=== PATIENT | male | born 1950 | race Caucasian/White ===

== ENCOUNTER 2016-09-17 02:25 | Inpatient (IN) | payer OTHER ==
[~2016-09-17] VITALS: Ht 180.3 cm; Wt 106.9 kg
[~2016-09-17 02:25] MED LIST: ALBUTEROL SULF8.5 GM IH; ASPIR-LOW81 MG PO; ASPIR-TRIN325 M1 PO; ASPIRIN BUFFER325 MG PO; CELEXA20 MG PO; CELEXA40 MG PO; CLOPIDOGREL75 MG PO; CRESTOR10 MG PO; FIBERCON625 MG PO; FLONASE16 G1 BOTH NARES; HUMULIN R100 UNITS/; HUMULIN R500 UNITS/ SC; IBUPROFEN800 MG PO; KEFLEX500 MG PO; LISINOPRIL5 MG PO; LOPRESSOR25 MG PO; NORCO 5/3251 TABLET PO; NOVOLOG 10100 UNITS/ SC; NOVOLOG100 UNIT/2 SQ; PERCOCET 5/31 TABLET PO; PRINIVIL5 MG PO; PROAIR HFA8.5 GM IH; REQUIP1 MG PO; SEROQUEL100 MG PO; SEROQUEL200 MG PO; SYMBICORT60 INHALAT IH
[2016-09-17 02:59] LABS: HEMATOCRIT 39.3 % (38.0-50.0); MCHC 34.1 G/DL (30.0-36.0); MCV 88.1 FL (86-99); MEAN PLAT.VOLUME 11.6 uM^3 (9.0-12.4); PLATELET COUNT 95 K/uL (156-360); RBC DIS.WIDTH-CV 13.7 % (11.8-14.6); RED BLOOD COUNT 4.46 M/uL (4.00-5.50); WHITE BLOOD COUNT 6.6 K/uL (4.1-10.2)
[2016-09-17 03:09] LABS: CHLORIDE 100 mEq/L (99-109); POTASSIUM 4.2 mEq/L (3.7-5.4); SODIUM 136 mEq/L (136-147)
[2016-09-17 03:11] LABS: GLUCOSE 346 mg/dL (70-99)
[2016-09-17 03:12] LABS: ANION GAP 12 MEQ/L (2-14)
[2016-09-17 03:14] LABS: GFR ESTIMATE (CALCULATED) > 59 mL/min/
[2016-09-17 03:15] LABS: UREA NITROGEN (BUN) 17 mg/dL (9-23)
[2016-09-17 05:08] LABS: TROP-I INTERPRETATION POSITIVE
[2016-09-17 05:09] LABS: TROPONIN-I 1.11 ng/mL (0.0-0.30)
[2016-09-17 05:17] LABS: INFLUENZA A VIRAL ANTIGEN NEGATIVE; INFLUENZA B VIRAL ANTIGEN NEGATIVE
[2016-09-17 05:31] LABS: INTER. NORMALIZED RATIO 1.2; PROTHROMBIN TIME 11.8 (9.2-11.2); PTT 27.1 (25-32)
[2016-09-17] MEDS ORDERED: ZITHROMAX250 MG PO (06:54)
[2016-09-17] MEDS ORDERED: KLOR-CON M2020 MEQ PO (06:56)
[2016-09-17] MEDS ORDERED: TRESIBA FL200 UNIT/1 SC (06:59)
[2016-09-17 07:11] LABS: HEMATOCRIT 35.1 % (38.0-50.0); MCH 29.5 PG (29.0-34.0); MCHC 33.3 G/DL (30.0-36.0); MCV 88.4 FL (86-99); MEAN PLAT.VOLUME 11.7 uM^3 (9.0-12.4); PLATELET COUNT 79 K/uL (156-360); RBC DIS.WIDTH-CV 13.5 % (11.8-14.6); RBC DIS.WIDTH-SD 42.8 % (39-53); RED BLOOD COUNT 3.97 M/uL (4.00-5.50); WHITE BLOOD COUNT 5.2 K/uL (4.1-10.2)
[2016-09-17 07:36] LABS: Estimated Average Glucose 212 mg/dL (70-123)
[2016-09-17 07:45] LABS: HDL CHOLESTEROL 27 MG/DL (Desirable>=40); LDL CHOLESTEROL 62 mg/dL (Desirable<100); NON-HDL CHOLESTEROL 89 mg/dL (Desirable<160); TOTAL CHOLESTEROL 116 mg/dL (Desirable<200); TRIGLYCERIDES 133 MG/DL (Normal: <150)
[2016-09-17 07:46] LABS: TROP-I INTERPRETATION POSITIVE
[2016-09-17 07:47] LABS: TROPONIN-I 0.85 ng/mL (0.0-0.30)
[2016-09-17 08:10] VITALS: BP 132/90
[2016-09-17 08:33] LABS: POINT-OF-CARE METER ID UU14174216; POINT-OF-CARE USER ID NUTSLF44
[2016-09-17 09:51] LABS: ADD MIUA? NO; BILIRUBIN NEGATIVE; BLOOD NEGATIVE; COLOR YELLOW ((YELLOW)); GLUCOSE (STRIP) >1000; KETONES NEGATIVE; LEUKOCYTES NEGATIVE; NITRITE NEGATIVE; PROTEIN (STRIP) NEGATIVE; SPECIFIC GRAVITY 1.039 (1.000-1.030); UROBILINOGEN 0.2 MG/DL (0.2-1.0)
[2016-09-17 10:01] LABS: UCUL ADDED? NO
[2016-09-17 10:26] LABS: AMPHETAMINES QUANT VALUE 0 NG/ML; BARBITUATES QUANT VALUE 0 NG/ML; BENZODIAZEPINES QUANT VALUE 0 NG/ML; BENZODIAZEPINES, URINE SCREEN Negative (200 ng/mL); MARIJUANA QUANT VALUE 0 NG/ML; OPIATES QUANTITATIVE VALUE 0 NG/ML; PHENCYCLIDINE QUANT VALUE 0 NG/ML
[2016-09-17] MEDS ORDERED: FIBERCON625 MG PO (12:37)
[2016-09-17] MEDS ORDERED: CRESTOR20 MG PO (12:39)
[2016-09-17] MEDS ORDERED: PROVENTIL,2.5 MG/3 M IH (12:41)
[2016-09-17] MEDS ORDERED: FLONASE16 G1 BOTH NARES (12:41)
[2016-09-17] MEDS ORDERED: CALCIUM MAGNES1 EAC1 PO (12:43)
[2016-09-17] MEDS ORDERED: REQUIP2 MG PO (12:44)
[2016-09-17] MEDS ORDERED: ZITHROMAX Z-PA250 MG PO (12:46)
[2016-09-17 13:02] VITALS: BP 141/67
[2016-09-17 14:29] LABS: POINT-OF-CARE METER ID UU14174216
[2016-09-17 16:24] VITALS: BP 139/65
[2016-09-17 16:42] LABS: POINT-OF-CARE METER ID UU14174216
[2016-09-17 18:43] LABS: TROP-I INTERPRETATION INDETERMINATE; TROPONIN-I 0.37 ng/mL (0.0-0.30)
[2016-09-17 20:06] VITALS: BP 146/67
[2016-09-17 21:07] LABS: POINT-OF-CARE METER ID UU14174216
[2016-09-17 23:03] LABS: TROP-I INTERPRETATION NEGATIVE; TROPONIN-I 0.18 ng/mL (0.0-0.30)
[2016-09-18] VITALS (7 sets, daily range): BP systolic 110–131; BP diastolic 53–68
[2016-09-18 09:34] LABS: ALKALINE PHOSPHATASE 53 IU/L (3-129); ANION GAP 12 MEQ/L (2-14); CHLORIDE 104 MEQ/L (99-109); GFR ESTIMATE (CALCULATED) > 59 mL/min/; GLUCOSE 296 mg/dL (70-99); POTASSIUM 4.5 MEQ/L (3.7-5.4); SAMPLE HEMOLYSIS CHECK 0; SAMPLE ICTERIC CHECK 0; SAMPLE LIPEMIA CHECK 0; SODIUM 138 MEQ/L (136-147); TOTAL BILIRUBIN 0.4 MG/DL (0.0-1.0); UREA NITROGEN (BUN) 20 mg/dL (9-23)
[2016-09-19 03:50] VITALS: BP 123/57
[2016-09-19 06:20] LABS: ANION GAP 7 MEQ/L (2-14); CHLORIDE 105 MEQ/L (99-109); GFR ESTIMATE (CALCULATED) > 59 mL/min/; GLUCOSE 234 mg/dL (70-99); POTASSIUM 4.3 MEQ/L (3.7-5.4); SAMPLE HEMOLYSIS CHECK 0; SAMPLE ICTERIC CHECK 0; SAMPLE LIPEMIA CHECK 0; SODIUM 137 MEQ/L (136-147); UREA NITROGEN (BUN) 22 mg/dL (9-23)
[2016-09-19 06:21] LABS: HEMATOCRIT 34.2 % (38.0-50.0); MCHC 32.5 G/DL (30.0-36.0); MCV 89.3 FL (86-99); MEAN PLAT.VOLUME 11.7 uM^3 (9.0-12.4); PLATELET COUNT 76 K/uL (156-360); RBC DIS.WIDTH-CV 14.1 % (11.8-14.6); RBC DIS.WIDTH-SD 46.1 % (39-53); RED BLOOD COUNT 3.83 M/uL (4.00-5.50)
[2016-09-19 06:22] LABS: WHITE BLOOD COUNT 7.3 K/uL (4.1-10.2)
[2016-09-19 07:35] VITALS: BP 116/63
[2016-09-19 11:35] VITALS: BP 134/63
[2016-09-19] MEDS ORDERED: IMDUR60 MG PO (14:10)
[2016-09-19] MEDS ORDERED: PREDNISONE20 MG PO (14:10)
[2016-09-19] MEDS ORDERED: LEVOFLOXACIN750 MG PO (14:10)
== END 2016-09-19 15:03 | disposition home or self-care (01) | DRG 192 ==
LOC: EME 02:25 → 4EAST 06:12 → EDOF 06:12 → 4EAST 08:02
PROVIDERS: Emergency Medicine; Hospitalist; Internal Medicine; Physician Assistant; Physician Assistant Medical
DX: J44.1 Chronic obstructive pulmonary disease with (acute) exacerbation (principal); R07.89 Other chest pain; E11.65 Type 2 diabetes mellitus with hyperglycemia; I25.10 Atherosclerotic heart disease of native coronary artery without angina pectoris; I25.2 Old myocardial infarction; Z95.1 Presence of aortocoronary bypass graft; G47.33 Obstructive sleep apnea (adult) (pediatric); I08.1 Rheumatic disorders of both mitral and tricuspid valves; I10 Essential (primary) hypertension; Z87.891 Personal history of nicotine dependence; Z91.19 Patient's noncompliance with other medical treatment and regimen; K21.9 Gastro-esophageal reflux disease without esophagitis; F20.9 Schizophrenia, unspecified; E78.5 Hyperlipidemia, unspecified; E66.01 Morbid (severe) obesity due to excess calories; Z68.37 Body mass index [BMI] 37.0-37.9, adult; D69.6 Thrombocytopenia, unspecified; I27.2 Other secondary pulmonary hypertension; R74.8 Abnormal levels of other serum enzymes; K74.60 Unspecified cirrhosis of liver; K76.0 Fatty (change of) liver, not elsewhere classified; J44.0 Chronic obstructive pulmonary disease with (acute) lower respiratory infection; J20.9 Acute bronchitis, unspecified
CPT/HCPCS: 71020; 71275; 80048; 80053; 80061; 81003; 82948; 83036; 84484; 85027; 85610; 85730; 87502; 93005; 94640; 94640 76; 94760; 99202; 99281; 99285; J1815; J1956; J2270; J2930; J7030; J7512

== ENCOUNTER 2016-11-04 02:24 | Inpatient (IN) | payer OTHER ==
[~2016-11-04] VITALS: Ht 180.3 cm; Wt 117.9 kg
[~2016-11-04 02:24] MED LIST changes: +CALCIUM MAGNES1 EAC1 PO; +CRESTOR20 MG PO; +IMDUR60 MG PO; +KLOR-CON M2020 MEQ PO; +LEVOFLOXACIN750 MG PO; +PREDNISONE20 MG PO; +PROVENTIL,2.5 MG/3 M IH; +REQUIP2 MG PO; +TRESIBA FL200 UNIT/1 SC; +ZITHROMAX Z-PA250 MG PO; +ZITHROMAX250 MG PO
[2016-11-04 02:40] LABS: HEMATOCRIT 39.6 % (38.0-50.0); MCH 29.9 PG (29.0-34.0); MCHC 34.1 G/DL (30.0-36.0); MCV 87.8 FL (86-99); MEAN PLAT.VOLUME 11.3 uM^3 (9.0-12.4); PLATELET COUNT 71 K/uL (156-360); RBC DIS.WIDTH-CV 13.1 % (11.8-14.6); RBC DIS.WIDTH-SD 40.8 % (39-53); RED BLOOD COUNT 4.51 M/uL (4.00-5.50); WHITE BLOOD COUNT 5.5 K/uL (4.1-10.2)
[2016-11-04 02:47] LABS: CHLORIDE 101 mEq/L (99-109); POTASSIUM 4.1 mEq/L (3.7-5.4); SODIUM 135 mEq/L (136-147)
[2016-11-04 02:50] LABS: ANION GAP 13 MEQ/L (2-14)
[2016-11-04 02:53] LABS: GFR ESTIMATE (CALCULATED) > 59 mL/min/; UREA NITROGEN (BUN) 12 mg/dL (9-23)
[2016-11-04 02:58] LABS: GLUCOSE 464 mg/dL (70-99)
[2016-11-04 02:59] LABS: TROP-I INTERPRETATION NEGATIVE; TROPONIN-I 0.21 ng/mL (0.0-0.30)
[2016-11-04 03:39] LABS: INTER. NORMALIZED RATIO 1.2; PROTHROMBIN TIME 11.8 (9.2-11.2); PTT 28.7 (25-32)
[2016-11-04 03:42] LABS: CARBON DIOXIDE (BICARBONATE) 26.8 MEQ/L (20-31)
[2016-11-04 07:48] LABS: POINT-OF-CARE METER ID UU13113781
[2016-11-04 08:19] VITALS: BP 126/63
[2016-11-04 09:30] LABS: HEMATOCRIT 39.8 % (38.0-50.0); MCH 28.9 PG (29.0-34.0); MCHC 32.9 G/DL (30.0-36.0); MCV 87.9 FL (86-99); MEAN PLAT.VOLUME 11.3 uM^3 (9.0-12.4); PLATELET COUNT 69 K/uL (156-360); RBC DIS.WIDTH-CV 13.3 % (11.8-14.6); RBC DIS.WIDTH-SD 42.6 % (39-53); RED BLOOD COUNT 4.53 M/uL (4.00-5.50); WHITE BLOOD COUNT 3.6 K/uL (4.1-10.2)
[2016-11-04 09:52] LABS: TROP-I INTERPRETATION NEGATIVE; TROPONIN-I 0.24 ng/mL (0.0-0.30)
[2016-11-04 09:59] LABS: ALKALINE PHOSPHATASE 68 IU/L (3-129); ANION GAP 12 MEQ/L (2-14); CHLORIDE 101 MEQ/L (99-109); GFR ESTIMATE (CALCULATED) > 59 mL/min/; GLUCOSE 389 mg/dL (70-99); POTASSIUM 4.3 MEQ/L (3.7-5.4); SAMPLE HEMOLYSIS CHECK 0; SAMPLE ICTERIC CHECK 0; SAMPLE LIPEMIA CHECK 0; SODIUM 136 MEQ/L (136-147); UREA NITROGEN (BUN) 12 mg/dL (9-23)
[2016-11-04] MEDS ORDERED: LO-DOSE ASPIRIN81 M2 PO (10:24)
[2016-11-04 10:26] LABS: TOTAL BILIRUBIN 0.5 MG/DL (0.0-1.0)
[2016-11-04] MEDS ORDERED: PLAVIX75 MG PO (10:28)
[2016-11-04] MEDS ORDERED: ISOSORBIDE MONO60 MG PO (10:51)
[2016-11-04] MEDS ORDERED: CICLOPIROX30 GM TP (10:52)
[2016-11-04 11:25] LABS: POINT-OF-CARE METER ID UU13113781
[2016-11-04 12:06] VITALS: BP 113/56
[2016-11-04 15:19] LABS: TROP-I INTERPRETATION NEGATIVE; TROPONIN-I 0.19 ng/mL (0.0-0.30)
[2016-11-04 17:46] VITALS: BP 142/67
[2016-11-04 19:00] VITALS: BP 142/69
[2016-11-04 21:34] LABS: POINT-OF-CARE METER ID UU13113781
[2016-11-04 21:34] LABS: POINT-OF-CARE METER ID UU13113781
[2016-11-04 23:00] VITALS: BP 136/74
[2016-11-05 03:30] VITALS: BP 122/62
[2016-11-05] MEDS ORDERED: AZITHROMYCIN500 M1 PO (08:00)
[2016-11-05] MEDS ORDERED: PREDNISONE10 MG PO (08:00)
[2016-11-05 08:13] LABS: POINT-OF-CARE METER ID UU13113781; POINT-OF-CARE USER ID NUTSLF44
[2016-11-05 09:30] VITALS: BP 141/73
== END 2016-11-05 09:26 | disposition home or self-care (01) | DRG 191 ==
LOC: EME 02:24 → EDOF 03:45 → 4EAST 05:50
PROVIDERS: Emergency Medicine; Internal Medicine
DX: J44.1 Chronic obstructive pulmonary disease with (acute) exacerbation (principal); I50.32 Chronic diastolic (congestive) heart failure; K76.6 Portal hypertension; I25.810 Atherosclerosis of coronary artery bypass graft(s) without angina pectoris; E11.65 Type 2 diabetes mellitus with hyperglycemia; E66.01 Morbid (severe) obesity due to excess calories; R00.0 Tachycardia, unspecified; G47.33 Obstructive sleep apnea (adult) (pediatric); F20.9 Schizophrenia, unspecified; F31.9 Bipolar disorder, unspecified; D69.6 Thrombocytopenia, unspecified; I34.0 Nonrheumatic mitral (valve) insufficiency; I10 Essential (primary) hypertension; K76.0 Fatty (change of) liver, not elsewhere classified; I27.2 Other secondary pulmonary hypertension; K74.60 Unspecified cirrhosis of liver; N28.1 Cyst of kidney, acquired; R16.1 Splenomegaly, not elsewhere classified; Z91.19 Patient's noncompliance with other medical treatment and regimen; Z87.891 Personal history of nicotine dependence; Z68.36 Body mass index [BMI] 36.0-36.9, adult; Z95.5 Presence of coronary angioplasty implant and graft; Z79.4 Long term (current) use of insulin; Z88.0 Allergy status to penicillin; Z79.02 Long term (current) use of antithrombotics/antiplatelets; I25.2 Old myocardial infarction; Z79.82 Long term (current) use of aspirin; Z83.6 Family history of other diseases of the respiratory system; Z83.3 Family history of diabetes mellitus
CPT/HCPCS: 36415; 71020; 76700; 80048; 80053; 80076; 82010; 82306 GA; 82607 GA; 82803; 82948; 83036; 83735; 83880; 84484; 85027; 85610; 85730; 93005; 94640; 94640 76; 99202; 99281; 99285; J1644; J1815; J2930; J7030; J7512

== ENCOUNTER 2017-03-07 21:29 | Emergency (ER) | payer OTHER ==
[~2017-03-07] VITALS: Ht 180.3 cm; Wt 122.7 kg
[~2017-03-07 21:29] MED LIST changes: +AZITHROMYCIN500 M1 PO; +CICLOPIROX30 GM TP; +ISOSORBIDE MONO60 MG PO; +LO-DOSE ASPIRIN81 M2 PO; +PLAVIX75 MG PO; +PREDNISONE10 MG PO
[2017-03-07 22:01] LABS: HEMATOCRIT 40.3 % (38.0-50.0); MCH 29.8 PG (29.0-34.0); MCV 87.6 FL (86-99); MEAN PLAT.VOLUME 11.5 uM^3 (9.0-12.4); PLATELET COUNT 104 K/uL (156-360); RBC DIS.WIDTH-CV 13.2 % (11.8-14.6); WHITE BLOOD COUNT 8.8 K/uL (4.1-10.2)
[2017-03-07 22:12] LABS: CHLORIDE 103 mEq/L (99-109); POTASSIUM 4.3 mEq/L (3.7-5.4); SODIUM 139 mEq/L (136-147)
[2017-03-07 22:13] LABS: GLUCOSE 185 mg/dL (70-99)
[2017-03-07 22:15] LABS: ANION GAP 11 MEQ/L (2-14)
[2017-03-07 22:17] LABS: GFR ESTIMATE (CALCULATED) > 59 mL/min/
[2017-03-07 22:18] LABS: UREA NITROGEN (BUN) 18 mg/dL (9-23)
[2017-03-07] MEDS ORDERED: TYLENOL WITH C1 EACH PO (23:36)
[2017-03-07 23:51] VITALS: BP 126/78
== END 2017-03-07 23:52 | disposition home or self-care (01) ==
LOC: EME 21:29
DX: S09.90XA Unspecified injury of head, initial encounter (principal); S43.401A Unspecified sprain of right shoulder joint, initial encounter; S80.01XA Contusion of right knee, initial encounter; W28.XXXA Contact with powered lawn mower, initial encounter; Y93.I9 Activity, other involving external motion; Y92.007 Garden or yard of unspecified non-institutional (private) residence as the place of occurrence of the external cause; E11.9 Type 2 diabetes mellitus without complications; I25.2 Old myocardial infarction; J44.9 Chronic obstructive pulmonary disease, unspecified; F32.9 Major depressive disorder, single episode, unspecified; K21.9 Gastro-esophageal reflux disease without esophagitis; Z95.1 Presence of aortocoronary bypass graft; Z88.0 Allergy status to penicillin; Z87.891 Personal history of nicotine dependence; Z87.442 Personal history of urinary calculi; Z79.4 Long term (current) use of insulin
CPT/HCPCS: 70450; 71020; 72125; 73030; 73564; 73590; 80048; 85027; 93005; 99281; 99284

== ENCOUNTER 2017-04-12 06:13 | Inpatient (IN) | payer OTHER ==
[~2017-04-12] VITALS: Ht 180.3 cm; Wt 121.2 kg
[~2017-04-12 06:13] MED LIST changes: +CALCIUM CIT 201 EACH PO; -CALCIUM MAGNES1 EAC1 PO; +TYLENOL WITH C1 EACH PO
[2017-04-12 07:14] LABS: HEMATOCRIT 34.4 % (38.0-50.0); MCH 29.4 PG (29.0-34.0); MEAN PLAT.VOLUME 12.3 uM^3 (9.0-12.4); PLATELET COUNT 67 K/uL (156-360); RBC DIS.WIDTH-CV 14.1 % (11.8-14.6); RBC DIS.WIDTH-SD 47.6 % (39-53); RED BLOOD COUNT 3.74 M/uL (4.00-5.50); WHITE BLOOD COUNT 5.2 K/uL (4.1-10.2)
[2017-04-12 07:49] LABS: ANION GAP 7 MEQ/L (2-14); CHLORIDE 107 MEQ/L (99-109); GFR ESTIMATE (CALCULATED) > 59 mL/min/; GLUCOSE 160 mg/dL (70-99); POTASSIUM 4.3 MEQ/L (3.7-5.4); SAMPLE HEMOLYSIS CHECK 0; SAMPLE ICTERIC CHECK 0; SAMPLE LIPEMIA CHECK 0; SODIUM 140 MEQ/L (136-147); TROP-I INTERPRETATION INDETERMINATE; TROPONIN-I 0.46 ng/mL (0.0-0.30); UREA NITROGEN (BUN) 21 mg/dL (9-23)
[2017-04-12 10:53] LABS: HEMATOCRIT 34.8 % (38.0-50.0); MCH 29.4 PG (29.0-34.0); MCHC 31.6 G/DL (30.0-36.0); RBC DIS.WIDTH-CV 14.1 % (11.8-14.6); RED BLOOD COUNT 3.74 M/uL (4.00-5.50); WHITE BLOOD COUNT 5.5 K/uL (4.1-10.2)
[2017-04-12 11:32] LABS: MEAN PLAT.VOLUME 11.8 uM^3 (9.0-12.4); PLAT.SUFFICIENCY DECREASED; PLATELET COUNT 69 K/uL (156-360)
[2017-04-12] MEDS ORDERED: PIOGLITAZONE-M1 EAC1 PO (11:42)
[2017-04-12] MEDS ORDERED: MOTRIN800 MG PO (11:42)
[2017-04-12 12:52] LABS: TROP-I INTERPRETATION POSITIVE
[2017-04-12 12:53] LABS: TROPONIN-I 1.08 ng/mL (0.0-0.30)
[2017-04-12 13:32] LABS: INTER. NORMALIZED RATIO 1.2
[2017-04-12 13:34] LABS: PTT 31.7 SEC (25-37)
[2017-04-12 15:35] VITALS: BP 123/59
[2017-04-12 18:56] LABS: TROP-I INTERPRETATION POSITIVE; TROPONIN-I 0.82 ng/mL (0.0-0.30)
[2017-04-12 19:26] VITALS: BP 145/65
[2017-04-12 21:09] LABS: INTER. NORMALIZED RATIO 1.2; PROTHROMBIN TIME 13.5 SEC (10.2-12.9)
[2017-04-12 21:23] LABS: PTT 49.9 SEC (25-37)
[2017-04-12 23:40] VITALS: BP 137/61
[2017-04-13] VITALS (7 sets, daily range): BP systolic 102–132; BP diastolic 55–66
[2017-04-13 16:01] LABS: POINT-OF-CARE METER ID UU13113819
[2017-04-14 03:16] VITALS: BP 110/55
[2017-04-14 07:39] LABS: POINT-OF-CARE METER ID UU13113803
[2017-04-14 09:30] VITALS: BP 118/56
[2017-04-14 11:20] LABS: POINT-OF-CARE METER ID UU13113803
[2017-04-14 12:00] VITALS: BP 113/63
[2017-04-14] MEDS ORDERED: NITROSTAT0.4 MG SL (16:06)
== END 2017-04-14 16:19 | disposition home or self-care (01) | DRG 281 ==
LOC: EME 06:13 → 4EAST 10:09 → EDOF 10:09 → ENRESERV 12:11 → EDOF 12:11 → ENRESERV 12:54 → 4EAST 15:28
PROVIDERS: Hospitalist
DX: I21.4 Non-ST elevation (NSTEMI) myocardial infarction (principal); T82.898A Other specified complication of vascular prosthetic devices, implants and grafts, initial encounter; I50.32 Chronic diastolic (congestive) heart failure; I11.0 Hypertensive heart disease with heart failure; I25.110 Atherosclerotic heart disease of native coronary artery with unstable angina pectoris; J44.9 Chronic obstructive pulmonary disease, unspecified; D69.6 Thrombocytopenia, unspecified; Y83.2 Surgical operation with anastomosis, bypass or graft as the cause of abnormal reaction of the patient, or of later complication, without mention of misadventure at the time of the procedure; E11.9 Type 2 diabetes mellitus without complications; E78.5 Hyperlipidemia, unspecified; F20.9 Schizophrenia, unspecified; K21.9 Gastro-esophageal reflux disease without esophagitis; I25.2 Old myocardial infarction; Z72.0 Tobacco use; Z79.4 Long term (current) use of insulin; Z79.51 Long term (current) use of inhaled steroids; Z79.82 Long term (current) use of aspirin; Z87.442 Personal history of urinary calculi; Z86.73 Personal history of transient ischemic attack (TIA), and cerebral infarction without residual deficits; Z79.899 Other long term (current) drug therapy; Z83.3 Family history of diabetes mellitus; R20.0 Anesthesia of skin
CPT/HCPCS: 36415; 71020; 73130; 80048; 82948; 84443; 84484; 85025; 85027; 85347; 85610; 85730; 93005; 94640; 94640 76; 99281; 99285; C1769; C1887; C1894; J1644; J1815; J2250; J3010; J7040

== ENCOUNTER 2017-09-13 20:39 | Emergency (ER) | payer OTHER ==
[~2017-09-13] VITALS: Ht 180.3 cm; Wt 121.5 kg
[~2017-09-13 20:39] MED LIST changes: +MOTRIN800 MG PO; +NITROSTAT0.4 MG SL; +PIOGLITAZONE-M1 EAC1 PO
[2017-09-13 21:00] LABS: HEMATOCRIT 39.2 % (38.0-50.0); HEMOGLOBIN 13.2 G/DL (12.5-16.6); MCH 30.2 PG (29.0-34.0); MCHC 33.7 G/DL (30.0-36.0); MCV 89.7 FL (86-99); PLATELET COUNT 106 K/uL (156-360); RBC DIS.WIDTH-CV 13.1 % (11.8-14.6); RBC DIS.WIDTH-SD 43.1 % (39-53); RED BLOOD COUNT 4.37 M/uL (4.00-5.50); WHITE BLOOD COUNT 7.8 K/uL (4.1-10.2)
[2017-09-13 21:11] LABS: CHLORIDE 101 mEq/L (99-109); POTASSIUM 4.6 mEq/L (3.7-5.4); SODIUM 141 mEq/L (136-147)
[2017-09-13 21:13] LABS: GLUCOSE 146 mg/dL (70-99)
[2017-09-13 21:17] LABS: GFR ESTIMATE (CALCULATED) > 59 mL/min/ (58.99-99999)
[2017-09-13 21:18] LABS: UREA NITROGEN (BUN) 15 mg/dL (9-23)
[2017-09-13] MEDS ORDERED: PREDNISONE10 M1 PO (22:09)
[2017-09-13 23:10] VITALS: BP 115/56
== END 2017-09-13 23:31 | disposition home or self-care (01) ==
LOC: EME 20:39
DX: J44.1 Chronic obstructive pulmonary disease with (acute) exacerbation (principal); I25.2 Old myocardial infarction; E11.9 Type 2 diabetes mellitus without complications; Z79.4 Long term (current) use of insulin; Z95.1 Presence of aortocoronary bypass graft; Z95.5 Presence of coronary angioplasty implant and graft; Z79.82 Long term (current) use of aspirin; Z88.0 Allergy status to penicillin; Z87.891 Personal history of nicotine dependence
CPT/HCPCS: 71046; 80048; 85027; 94640; 99281; 99285; J7512

== ENCOUNTER 2018-03-29 18:38 | Emergency (ER) | payer OTHER ==
[~2018-03-29] VITALS: Ht 180.3 cm; Wt 117.5 kg
[~2018-03-29 18:38] MED LIST changes: +PREDNISONE10 M1 PO
[2018-03-29 20:30] VITALS: BP 142/90
== END 2018-03-29 20:31 | disposition home or self-care (01) ==
LOC: EME 18:38
PROC: 0HQFXZZ Repair Right Hand Skin, External Approach (ICD-10-PCS; principal; 2018-03-29)
DX: S61.210A Laceration without foreign body of right index finger without damage to nail, initial encounter (principal); W27.8XXA Contact with other nonpowered hand tool, initial encounter; I50.9 Heart failure, unspecified; Z88.0 Allergy status to penicillin; Z87.891 Personal history of nicotine dependence; Z79.82 Long term (current) use of aspirin
CPT/HCPCS: 99281; 99284; S0020